=== PATIENT | male | born 1960 | race African-American/Black ===

== ENCOUNTER 2022-10-20 16:28 | Emergency (ER) | payer MEDICARE, OTHER ==
[2022-10-20 17:09] LABS: Hemoglobin 12.7 g/dL (14.0-18.0); MDiff Complete? YES; Manual Diff?? YES; Mean Corpuscular HGB CONC 32.5 g/dL (32.0-36.0); Mean Corpuscular Hemoglobin 30.4 pg (27.0-31.0); Mean Corpuscular Volume 93.2 fl (78.0-98.0); Mean Platelet Volume 7.6 fL (7.4-10.4); Platelet Count 217 10x3/uL (130-400); RBC Distribution Width 12.1 % (11.5-14.5); Red Blood Cell (RBC) Count 4.19 mill/uL (4.70-6.10); White Blood Cell (WBC) Count 20.1 10x3/uL (4.8-10.8)
[2022-10-20 17:15] LABS: Base Excess-Venous -23.2 mmol/L (-2.0 to 3.0); Bicarbonate (HCO3v) 6.3 mmol/L (22.0-28.0); CO2 Tension (PvCO2) 24.1 mmHg (42.0-51.0); Calcium, Ionized 1.02 mmol/L (1.15-1.33); Chloride 107 mmol/L (98-107); Hemoglobin - Calc 13.1 g/dL (14.0-18.0); Potassium 6.2 mmol/L (3.5-5.1); Sodium 132 mmol/L (138-145); T. Carbon Dioxide 7.1 mmol/L (22.0-28.0); vO2 Saturation-calc 79.8 % (60.0-85.0)
[2022-10-20 17:16] LABS: ALT (SGPT) 26 U/L (8-55); AST (SGOT) 59 U/L (5-34); Albumin 4.3 g/dL (3.4-4.8); Alkaline Phosphatase 84 U/L (40-110); BUN (Urea Nitrogen) 67 mg/dL (8.4-25.7); Bilirubin, Total 0.4 mg/dL (0.2-1.2); Calc. Creatinine Clearance 0 mL/min (70-130); Calcium 8.8 mg/dL (7.8-10.44); Carbon Dioxide Less than 8 mmol/L (23-31); Chloride 99 mmol/L (98-107); Estimated GFR 14; Globulin 2.8 g/dL (2.4-3.5); Lipase 138 U/L (8-78); Protein, Total 7.1 g/dL (5.8-8.1); Sodium 134 mmol/L (136-145)
[2022-10-20 17:17] LABS: Platelet Morphology Comment Appears Adequate
[2022-10-20 17:19] LABS: Band 1 % (5-11); Lymphocytes 2 % (21-51); Monocytes 6 % (0-10); Neutrophil 91 % (42-75); Toxic Granulation SLIGHT
[2022-10-20 17:26] LABS: Glucose 540 mg/dL (80-115); Potassium 6.4 mmol/L (3.5-5.1)
[2022-10-20] MEDS ORDERED: INSULIN REGULAR IN 0.9 % NACL 100 UNIT/100 ML BAG ONE (17:57)
[2022-10-20] MEDS ORDERED: Calcium Gluc 4.6 MEQ/10 ML (100 MG/ML) ONE (17:57)
[2022-10-20] MEDS ORDERED: Sodium Chloride 0.9% 100 ML ONE (17:57)
[2022-10-20 17:58] LABS: Bilirubin Negative (Negative); Blood, Urine Large (Negative); Clarity Cloudy (Clear); Glucose, Urine (Dipstick) 100 mg/dL (Negative); Ketone, Urine 40 mg/dL (Negative); Leukocyte Negative (Negative); Nitrite Negative (Negative); Protein, Urine (Dipstick) 100 mg/dL (Neg-Trace); Urobilinogen 0.2 mg/dL (Less than 2)
[2022-10-20 18:02] LABS: Specific Gravity, Urine 1.015 (1.002-1.036)
[2022-10-20 18:04] LABS: Bacteria/HPF 3+ HPF (None Seen); Squamous Epithelial 0-3 HPF (0-3); WBC/HPF 0-3 HPF (0-3)
[2022-10-20 18:09] LABS: Amphetamine Not Detected (NotDetected); Barbiturates Screen Not Detected (NotDetected); Benzodiazepine Screen Not Detected (NotDetected); Cocaine Metabolite Screen Not Detected (NotDetected); Medtox Control Line Valid? VALID (VALID); Methadone Not Detected (NotDetected); Methamphetamine Not Detected (NotDetected); Oxycodone Screen Not Detected (NotDetected); Phencyclidine (PCP) Not Detected (NotDetected); THC/Cannabinoid Screen Detected (NotDetected); Tricyclic Screen Not Detected (NotDetected)
[2022-10-20 18:11] LABS: SARS-CoV-2 NAA Rapid Test Not Detected (NotDetected)
[2022-10-20 18:16] LABS: Opiate Screen Not Detected (NotDetected)
[2022-10-20] MEDS ORDERED: Levofloxacin 500 mg/D5W 100 ml Premix Bag ONE (18:24)
[2022-10-20] MEDS ORDERED: Sodium Chloride 0.9% 3,000 ML ONE (18:24)
[2022-10-20] MEDS ORDERED: Acetaminophen 500 MG TAB ONE (19:55)
[2022-10-20 20:14] LABS: Base Excess-Venous -13.5 mmol/L (-2.0 to 3.0); Bicarbonate (HCO3v) 12.5 mmol/L (22.0-28.0); CO2 Tension (PvCO2) 28.8 mmHg (42.0-51.0); Calcium, Ionized 1.09 mmol/L (1.15-1.33); Chloride 109 mmol/L (98-107); Hemoglobin - Calc 11.7 g/dL (14.0-18.0); Potassium 4.9 mmol/L (3.5-5.1); Sodium 137 mmol/L (138-145); T. Carbon Dioxide 13.4 mmol/L (22.0-28.0); vO2 Saturation-calc 44.5 % (60.0-85.0)
[2022-10-20 20:23] LABS: Anion Gap 25 mmol/L (10-20); BUN (Urea Nitrogen) 66 mg/dL (8.4-25.7); Calc. Creatinine Clearance 0 mL/min (70-130); Calcium 8.6 mg/dL (7.8-10.44); Carbon Dioxide 11 mmol/L (23-31); Chloride 106 mmol/L (98-107); Estimated GFR 16; Glucose 325 mg/dL (80-115); Potassium 4.9 mmol/L (3.5-5.1); Sodium 137 mmol/L (136-145)
[2022-10-20] MEDS ORDERED: D5 1/2 NS w/20 mEq KCL 0 ML ONE (20:36)
[2022-10-20] MEDS ORDERED: 1/2 NS w/KCL 20 mEq 1,000 ML IV SCH (21:00)
[2022-10-20 22:38] LABS: Anion Gap 20 mmol/L (10-20); BUN (Urea Nitrogen) 66 mg/dL (8.4-25.7); Calc. Creatinine Clearance 0 mL/min (70-130); Calcium 8.8 mg/dL (7.8-10.44); Carbon Dioxide 14 mmol/L (23-31); Chloride 107 mmol/L (98-107); Estimated GFR 19; Glucose 152 mg/dL (80-115); Potassium 4.2 mmol/L (3.5-5.1); Sodium 137 mmol/L (136-145)
[2022-10-20 22:39] LABS: Base Excess-Venous -9.9 mmol/L (-2.0 to 3.0); Bicarbonate (HCO3v) 14.8 mmol/L (22.0-28.0); CO2 Tension (PvCO2) 28.2 mmHg (42.0-51.0); Chloride 111 mmol/L (98-107); Hemoglobin - Calc 11.2 g/dL (14.0-18.0); Potassium 4.2 mmol/L (3.5-5.1); Sodium 138 mmol/L (138-145); T. Carbon Dioxide 15.6 mmol/L (22.0-28.0); vO2 Saturation-calc 71.6 % (60.0-85.0)
== END 2022-10-20 23:15 | disposition left against medical advice (07) ==
LOC: NAV ERS 16:28
DX: E11.10 Type 2 diabetes mellitus with ketoacidosis without coma (principal); N17.9 Acute kidney failure, unspecified; E11.22 Type 2 diabetes mellitus with diabetic chronic kidney disease; I12.9 Hypertensive chronic kidney disease with stage 1 through stage 4 chronic kidney disease, or unspecified chronic kidney disease; N18.9 Chronic kidney disease, unspecified; E86.0 Dehydration; Z79.84 Long term (current) use of oral hypoglycemic drugs
CPT/HCPCS: 36415; 36416; 71045; 80053; 80306; 81003; 81015; 82010; 82330; 82553; 82803; 83690; 84443; 84484; 85014; 85025; 87040; 87081; 87086; 87430; 93005; 96361; 96365; 96366; 96368; 96375; 96376; J0610; J1815; J1956; J3480; J7050